=== PATIENT | female | born 1950 | race Caucasian/White ===

== ENCOUNTER 2019-12-10 14:47 | Outpatient (CLI) | payer MEDICARE, SELFPAY ==
--- NOTE | 2019-12-10 14:57 | MM_ITS ---
WS: [id number] BILATERAL DIGITAL SCREENING MAMMOGRAPHY WITH CAD CLINICAL INFORMATION: SCREEN HISTORY: Screening mammogram. No current complaints. COMPARISON: TECHNIQUE: Bilateral CC and MLO views. FINDINGS: The breasts are composed of heterogeneous fibroglandular density tissue, which can limit the detectio n of small underlying mass lesions. No suspicious mass, asymmetry, calcifications, or architectural d istortion. No evidence of malignancy. MM/[place] [id number] IMPRESSION: BI-RADS: 1-Negative FOLLOW UP: 1 Year Follow-up Recommend return to annual screening mammography.
== END 2019-12-10 14:48 | disposition home or self-care (01) ==
LOC: RADSHAW 14:55
PROVIDERS: PCP Family Medicine; Visit Provider Family Medicine
DX: Z12.31 Encounter for screening mammogram for malignant neoplasm of breast (principal)
CPT/HCPCS: 77067

== ENCOUNTER 2020-04-07 09:59 | Outpatient (CLI) | payer MEDICARE, SELFPAY ==
--- NOTE | 2020-04-07 10:09 | XR_ITS ---
WS: [id number] Cervical spine, 4 views, 04/07/2020 Clinical Data: NECK PAIN Comparison: None. Findings: No compression fractures are seen. There is disc space narrowing at C4-C5 and C5-C6. Minima l osteoarthritic change of the C5 vertebral body is noted. There is no prevertebral soft tissue swell ing. The odontoid is unremarkable. The soft tissues of the neck and the lung apices are normal. XR/XR cervical spine 3V* [id number] Impression: 1. Degenerative disc narrowing at C4-C5 and C5-C6. 2. Osteoarthritis of C5.
== END 2020-04-07 10:00 | disposition home or self-care (01) ==
PROVIDERS: PCP Family Medicine; Visit Provider Family Medicine
DX: M47.812 Spondylosis without myelopathy or radiculopathy, cervical region (principal)
CPT/HCPCS: 72040

== ENCOUNTER 2020-09-28 09:41 | Outpatient (CLI) | payer MEDICARE, SELFPAY ==
--- NOTE | 2020-09-28 09:48 | XR_ITS ---
WS: [id number] Chest 2 views, 09/28/2020 Clinical Data: COUGH Comparison: PA and lateral chest, 07/20/2012. Findings: No nodules, masses or effusions are seen. The heart is normal. The pulmonary vascularity is not increased. No pneumonia or pneumothorax is seen. There is minimal calcification in the aortic ar ch and mild tortuosity of the descending thoracic aorta. XR/XR chest 2V* [id number] Impression: Atherosclerosis.
== END 2020-09-28 09:42 | disposition home or self-care (01) ==
PROVIDERS: PCP Family Medicine; Visit Provider Family Medicine
DX: R05 Cough (principal); I70.90 Unspecified atherosclerosis
CPT/HCPCS: 71046

== ENCOUNTER 2021-08-29 10:42 | Outpatient (CLI) | payer MEDICARE, OTHER, SELFPAY ==
--- NOTE | 2021-08-29 10:55 | MM_ITS ---
WS: [id number] Bilateral screening 3D tomosynthesis digital mammogram, 08/29/2021 Clinical Data: SCREEN Comparison: 12/10/2019, 11/02/2018, 07/25/2016, 09/21/2005. Findings: The breast parenchymal pattern shows heterogeneous density. No spiculated masses or clustered calcif ications are seen. There are no secondary signs of carcinoma. MM/[place] [id number] Impression: 1. Negative bilateral mammogram unchanged. 2. Recommend annual screening mammograms. BIRADS: 1-Negative FOLLOW UP: 1 Year Follow-up The CAD credit checker was used.
== END 2021-08-29 10:43 | disposition home or self-care (01) ==
PROVIDERS: PCP Electrodiagnostic Medicine; Visit Provider Electrodiagnostic Medicine
DX: Z12.31 Encounter for screening mammogram for malignant neoplasm of breast (principal)
CPT/HCPCS: 77063; 77067

== ENCOUNTER → 2021-09-27 10:50 | Outpatient (BNVA) | payer MEDICARE, OTHER, SELFPAY | PROVIDERS: PCP Electrodiagnostic Medicine; Referring Provider Electrodiagnostic Medicine; Visit Provider Internal Medicine | DX: E03.8 Other specified hypothyroidism (principal); E06.3 Autoimmune thyroiditis; E04.1 Nontoxic single thyroid nodule; Z86.39 Personal history of other endocrine, nutritional and metabolic disease | CPT/HCPCS: 99204 ==

== ENCOUNTER 2021-10-03 10:23 | Outpatient (CLI) | payer MEDICARE, OTHER, SELFPAY ==
[2021-10-03 11:56] LABS: Free T4 Free Thyroxine 1.06 ng/dL (0.82-1.77)
[2021-10-03 11:57] LABS: Thyroid Stimulating Hormone 0.85 uIU/mL (0.27-4.20)
== END 2021-10-03 10:24 | disposition home or self-care (01) ==
LOC: LAB 10:29
PROVIDERS: PCP Electrodiagnostic Medicine; Visit Provider Internal Medicine
DX: E03.8 Other specified hypothyroidism (principal); E06.3 Autoimmune thyroiditis
CPT/HCPCS: 36415; 84439; 84443

== ENCOUNTER 2021-11-22 12:45 | Outpatient (CLI) | payer MEDICARE, OTHER, SELFPAY ==
[2021-11-22 13:56] LABS: Free T4 Free Thyroxine 1.05 ng/dL (0.82-1.77); Thyroid Stimulating Hormone 1.39 uIU/mL (0.27-4.20)
[2021-11-23 08:53] LABS: T3 Total 86 ng/dL (76-181)
[2021-11-28 17:23] LABS: TSH Receptor Binding Antibody 1.93 IU/L (< OR = 2.00)
== END 2021-11-22 12:46 | disposition home or self-care (01) ==
LOC: LAB 12:48
PROVIDERS: PCP Electrodiagnostic Medicine; Visit Provider Internal Medicine
DX: E03.8 Other specified hypothyroidism (principal); E04.1 Nontoxic single thyroid nodule; E06.3 Autoimmune thyroiditis; Z86.39 Personal history of other endocrine, nutritional and metabolic disease
CPT/HCPCS: 36415; 83516; 84439; 84443; 84480

== ENCOUNTER 2021-12-06 07:52 | Outpatient (CLI) | payer MEDICARE, OTHER, SELFPAY ==
--- NOTE | 2021-12-06 08:30 | US_ITS ---
WS: [id number] ULTRASOUND THYROID TECHNIQUE: Ultrasound of the thyroid. CLINICAL INFORMATION: nodules COMPARISON: 08/30/21 FINDINGS: Thyroid: Heterogeneous RIGHT thyroid lobe. More homogeneous LEFT thyroid lobe. This is unchanged in a ppearance compared to previous. Thyroid volume is within normal limits. Right thyroid lobe: 3.4 cm x 1.2 cm x 1.3 cm Heterogeneous RIGHT thyroid nodule in the mid thyroid is less well-defined today measuring 1.2 x 1.3 cm but appears unchanged compared to August 20, 2021. Heterogeneous RIGHT thyroid lobe is similar in ap pearance. Additional small hypoechoic nodule RIGHT thyroid measuring 0.5 x 0.4 x 0.4 cm Left thyroid lobe: 3.1 cm x 1.5 cm x 1.1 cm. Isthmus: 0.2 mm. Cervical lymphadenopathy: A few prominent but normal-appearing lymph nodes with preserved fatty hilum . US/US thyroid [id number] IMPRESSION: 1. Heterogeneous RIGHT mid thyroid nodule is less well-defined today but appea rs unchanged compared to August 20, 2021 measuring 1.2 x 1.3 CM. Recommend 12 mon th follow-up. Diffuse heterogeneity RIGHT thyroid lobe. 2. Additional smaller 0.5 and 0.4 x 0.4 cm hypoechoic cystic appearing nodule RIGHT thyroid. 3. No LEFT thyroid nodules.
== END 2021-12-06 07:53 | disposition home or self-care (01) ==
LOC: RAD 07:52
PROVIDERS: PCP Electrodiagnostic Medicine; Visit Provider Internal Medicine
DX: E03.8 Other specified hypothyroidism (principal); E04.1 Nontoxic single thyroid nodule; E06.3 Autoimmune thyroiditis; Z86.39 Personal history of other endocrine, nutritional and metabolic disease
CPT/HCPCS: 76536

== ENCOUNTER → 2021-12-13 10:28 | Outpatient (BNVA) | payer MEDICARE, OTHER, SELFPAY | PROVIDERS: PCP Electrodiagnostic Medicine; Visit Provider Internal Medicine | DX: E06.3 Autoimmune thyroiditis (principal); E04.1 Nontoxic single thyroid nodule; E03.8 Other specified hypothyroidism; Z86.39 Personal history of other endocrine, nutritional and metabolic disease | CPT/HCPCS: 99214 ==

== ENCOUNTER 2022-03-21 09:31 | Outpatient (CLI) | payer MEDICARE, OTHER, SELFPAY ==
--- NOTE | 2022-03-21 10:08 | CTR_ITS ---
PROCEDURE INFORMATION: Exam: CT Neck With Contrast Exam date and time: 03/21/2022 11:11 AM Age: 71 years old Clinical indication: Other: Chronic lymphadentis; Patient HX: HX of endometrial cancer TECHNIQUE: Imaging protocol: Computed tomography of the neck with contrast. Radiation optimization: All CT scans at this facility use at least one of these dose optimization techniques: automated exposure control; mA and/or kV adjustment per patient size (includes targeted exams where dose is matched to clinical indication); or iterative reconstruction. Contrast material: OMNI 350; Contrast volume: 95 ml; Contrast route: INTRAVENOUS (IV); COMPARISON: [place] thyroid [id number] 12/06/2021 8:16 AM RADIATION DOSE METRICS: Total DLP (mGy-cm): 313.45 FINDINGS: Dental: Examination is limited secondary to metallic artifact from dental fillings and/or dental hardware. Pharynx: Unremarkable. No significant tonsillar enlargement. Larynx: Unremarkable. Epiglottis is normal. Prevertebral and retropharyngeal spaces: Unremarkable. Salivary glands: Normal. Glands are normal in size. Thyroid: Normal. No enlarged or calcified nodules. Lymph nodes: Unremarkable. No lymphadenopathy. Trachea: Visualized trachea is unremarkable. Lungs: Unremarkable as visualized. Bones/joints: Unremarkable. No acute fracture. Soft tissues: Unremarkable. No significant soft tissue swelling. CT/CT neck w con* [id number] IMPRESSION: No acute findings.
[2022-03-21 11:19] LABS: Blood Urea Nitrogen 12 mg/dL (8-23)
[2022-03-21] MEDS: iohexol 350 mg/mL 500 mL Btl (per mL) IV (11:20)
== END 2022-03-21 09:32 | disposition home or self-care (01) ==
LOC: RAD 09:37
PROVIDERS: PCP Electrodiagnostic Medicine; Visit Provider Electrodiagnostic Medicine
DX: I88.1 Chronic lymphadenitis, except mesenteric (principal)
CPT/HCPCS: 70491; 82565; 84520; Q9967

== ENCOUNTER 2022-06-04 08:21 | Outpatient (CLI) | payer MEDICARE, OTHER, SELFPAY ==
[2022-06-04 09:42] LABS: Free T4 Free Thyroxine 0.96 ng/dL (0.82-1.77); Thyroid Stimulating Hormone 3.92 uIU/mL (0.27-4.20)
== END 2022-06-04 08:22 | disposition home or self-care (01) ==
PROVIDERS: PCP Electrodiagnostic Medicine; Visit Provider Internal Medicine
DX: E03.8 Other specified hypothyroidism (principal); E06.3 Autoimmune thyroiditis
CPT/HCPCS: 84439; 84443

== ENCOUNTER → 2022-06-10 10:25 | Outpatient (BNVA) | payer MEDICARE, OTHER, SELFPAY | PROVIDERS: PCP Electrodiagnostic Medicine; Visit Provider Internal Medicine | DX: E04.1 Nontoxic single thyroid nodule (principal); E06.3 Autoimmune thyroiditis; E03.8 Other specified hypothyroidism; Z86.39 Personal history of other endocrine, nutritional and metabolic disease; Z79.890 Hormone replacement therapy | CPT/HCPCS: 99214 ==

== ENCOUNTER 2022-08-21 12:34 | Outpatient (CLI) | payer MEDICARE, OTHER, SELFPAY ==
--- NOTE | 2022-08-21 12:41 | XR_ITS ---
WS: [email or web address] SCREENING DEXA SCAN [employer] CLINICAL INFORMATION: POSTMENOPAUSAL COMPARISON: None. FINDINGS: The L1-L4 bone mineral density measures 1.198 g/cm2. This corresponds to a T score score of 0.2 and Z score of 1.5. Left femoral neck bone mineral density measures 0.933 g/cm2. This corresponds to a T score of -0.6 an d Z score of 0.7. Right femoral neck bone mineral density measures 0.845 g/cm2. This corresponds to a T score -1.3of an d Z score of 0.0. Mean femoral neck bone mineral density measures 0.889 g/cm2. This corresponds to a T score of -0.9 an d Z score of 0.4. XR/XR DEXA axial skeleton* [id number] IMPRESSION: Normal bone mineralization lumbar spine. Osteopenia RIGHT femoral neck. Normal bone mineralization LEFT femoral neck. Patient's FRAX calculated 10 year probability for major osteoporotic fracture i s 11.0 % and osteoporotic hip fracture is 2.1%.
== END 2022-08-21 12:35 | disposition home or self-care (01) ==
PROVIDERS: PCP Electrodiagnostic Medicine; Visit Provider Physician Assistant
DX: Z13.820 Encounter for screening for osteoporosis (principal); Z78.0 Asymptomatic menopausal state
CPT/HCPCS: 77080

== ENCOUNTER 2022-12-11 10:47 | Outpatient (CLI) | payer MEDICARE, OTHER, SELFPAY ==
--- NOTE | 2022-12-11 11:15 | US_ITS ---
WS: [id number] THYROID ULTRASOUND HISTORY: thyroid nodule COMPARISON: 12/06/2021 Right lobe: 1.4 cm x 1.0 cm x 3.2 cm (w x ap x l). Volume: 2.3 cm3. Small caliber thyroid. The previously described ill-defined hypoechoic area in the central gland is u nchanged measuring 5 x 4 x 6 mm. This nodule is not very well-defined and not increasing in size. No additional nodules. No increased vascularity. Left lobe: 1.2 cm x 1.4 cm x 3.7 cm (w x ap x l). Volume: 3.3 cm3. Normal size and echotexture. No significant or dominant nodules are present. Isthmus: 0.2 cm. IMPRESSION: 1. TI-RADS 2, RIGHT thyroid nodule. No additional follow-up necessary. 2. Negative LEFT thyroid.
== END 2022-12-11 10:48 | disposition home or self-care (01) ==
PROVIDERS: PCP Electrodiagnostic Medicine; Visit Provider Internal Medicine
DX: E03.8 Other specified hypothyroidism (principal); E04.1 Nontoxic single thyroid nodule; E06.3 Autoimmune thyroiditis; Z86.39 Personal history of other endocrine, nutritional and metabolic disease
CPT/HCPCS: 76536; 99214

== ENCOUNTER 2023-01-01 10:42 | Outpatient (CLI) | payer MEDICARE, OTHER, SELFPAY ==
[2023-01-01 11:53] LABS: Free T4 Free Thyroxine 1.15 ng/dL (0.82-1.77); Thyroid Stimulating Hormone 2.18 uIU/mL (0.27-4.20)
[2023-01-02 21:29] LABS: T3 Total 85 ng/dL (76-181)
== END 2023-01-01 10:43 | disposition home or self-care (01) ==
LOC: LAB 10:45
PROVIDERS: PCP Electrodiagnostic Medicine; Visit Provider Internal Medicine
DX: E03.8 Other specified hypothyroidism (principal); E06.3 Autoimmune thyroiditis; Z86.39 Personal history of other endocrine, nutritional and metabolic disease
CPT/HCPCS: 36415; 84439; 84443; 84480

== ENCOUNTER → 2023-01-09 10:24 | Outpatient (BNVA) | payer MEDICARE, OTHER, SELFPAY | PROVIDERS: PCP Electrodiagnostic Medicine; Visit Provider Internal Medicine | DX: E03.8 Other specified hypothyroidism (principal); E06.3 Autoimmune thyroiditis; Z86.39 Personal history of other endocrine, nutritional and metabolic disease; E04.1 Nontoxic single thyroid nodule; I10 Essential (primary) hypertension; Z79.890 Hormone replacement therapy | CPT/HCPCS: 99214 ==

== ENCOUNTER 2023-02-18 07:44 | Outpatient (CLI) | payer MEDICARE, OTHER, SELFPAY ==
--- NOTE | 2023-02-18 07:55 | MR_ITS ---
WS: [id number] MRI RIGHT KNEE NONCONTRAST TECHNIQUE: Axial PD, coronal PD fat sat, coronal PD, sagittal PD, and sagittal PD fat-sat images obta ined. CLINICAL INFORMATION: DERANGEMENT OF LATERAL MENISCUS OF R KNEE COMPARISON: None. FINDINGS: Moderate tricompartmental arthritis. Distal quadriceps and patella tendons are intact. Hypertrophic p atella. ACL and PCL are intact. Tiny suprapatellar effusion. Moderate chondromalacia patella. Normal medial and lateral patellar retinaculum. Chronic thinning of the medial and lateral meniscus. No acut e appearing meniscal tears. Moderate chondromalacia medial and lateral joint compartments. Small amount of fluid and edema along the joint line. Medial and lateral collateral ligaments appear intact. Mild chronic peripheral extrus ion of the medial meniscus. Small lobulated popliteal cyst IMPRESSION: 1. Moderate tricompartmental arthritis. 2. ACL and PCL are intact. 3. Chronic thinning of the medial and lateral meniscus. No acute meniscal tears. Chronic peripheral extrusion of the medial meniscus. 4. Small suprapatellar effusion. 5. Moderate chondromalacia patella. No subchondral edema. 6. Small lobulated popliteal cyst. Outbridge grading: grade III: partial-thickness cartilage loss with focal ulceration
== END 2023-02-18 07:45 | disposition home or self-care (01) ==
PROVIDERS: PCP Electrodiagnostic Medicine; Visit Provider Electrodiagnostic Medicine
DX: M13.861 Other specified arthritis, right knee (principal); M71.21 Synovial cyst of popliteal space [Baker], right knee; M94.261 Chondromalacia, right knee; M25.461 Effusion, right knee
CPT/HCPCS: 73721

== ENCOUNTER 2023-07-14 14:31 | Outpatient (CLI) | payer MEDICARE, OTHER, SELFPAY ==
[2023-07-14 15:38] LABS: Free T4 Free Thyroxine 1.04 ng/dL (0.82-1.77); Thyroid Stimulating Hormone 2.34 uIU/mL (0.27-4.20)
== END 2023-07-14 14:32 | disposition home or self-care (01) ==
LOC: LAB 14:33
PROVIDERS: PCP Electrodiagnostic Medicine; Visit Provider Internal Medicine
DX: E03.8 Other specified hypothyroidism (principal); E06.3 Autoimmune thyroiditis
CPT/HCPCS: 36415; 84439; 84443

== ENCOUNTER 2023-10-02 10:45 | Outpatient (CLI) | payer MEDICARE, OTHER, SELFPAY ==
[2023-10-02 11:30] LABS: Free T4 Free Thyroxine 1.23 ng/dL (0.82-1.77); Thyroid Stimulating Hormone 2.63 uIU/mL (0.27-4.20)
== END 2023-10-02 10:46 | disposition home or self-care (01) ==
LOC: LAB 10:46
PROVIDERS: PCP Electrodiagnostic Medicine; Visit Provider Internal Medicine
DX: E03.8 Other specified hypothyroidism (principal); E06.3 Autoimmune thyroiditis
CPT/HCPCS: 36415; 84439; 84443

== ENCOUNTER → 2023-10-07 10:37 | Outpatient (BNVA) | payer MEDICARE, OTHER, SELFPAY | PROVIDERS: PCP Electrodiagnostic Medicine; Visit Provider Internal Medicine | DX: E03.8 Other specified hypothyroidism (principal); E06.3 Autoimmune thyroiditis; Z86.39 Personal history of other endocrine, nutritional and metabolic disease; E04.1 Nontoxic single thyroid nodule; Z79.890 Hormone replacement therapy | CPT/HCPCS: 99214 ==

== ENCOUNTER 2023-12-24 09:07 | Outpatient (CLI) | payer MEDICARE, OTHER, SELFPAY ==
--- NOTE | 2023-12-24 09:11 | MM_ITS ---
WS: [id number] BILATERAL SCREENING DIGITAL TOMOSYNTHESIS MAMMOGRAM WITH CAD HISTORY: SCREENING COMPARISON: 08/29/2021, 12/10/2019 Bilateral CC and MLO views with tomosynthesis and synthetic mammography submitted. Computer aided det ection analyzed. Breast composition: The breasts are heterogeneously dense, which may obscure small masses. No suspici ous masses, microcalcifications or architectural distortion. Stable asymmetries and a few scattered c alcifications. Similar to the prior study. MM/MM scr tomosynthesis [id number] IMPRESSION: BI-RADS: 2 - Benign FOLLOW UP: 1 Year Follow-up
== END 2023-12-24 09:08 | disposition home or self-care (01) ==
LOC: RAD 09:08
PROVIDERS: PCP Electrodiagnostic Medicine; Visit Provider Physician Assistant
DX: Z12.31 Encounter for screening mammogram for malignant neoplasm of breast (principal)
CPT/HCPCS: 77063; 77067

== ENCOUNTER 2024-10-20 16:16 | Outpatient (CLI) | payer MEDICARE, OTHER, SELFPAY ==
--- NOTE | 2024-10-20 16:30 | US_ITS ---
WS: [id number] THYROID ULTRASOUND REASON FOR EXAM: Thyroid nodule/nodules follow-up. TECHNIQUE: Grayscale and Doppler ultrasound examination of the thyroid gland. FINDINGS: LEFT: Left thyroid gland measures 3.2 cm x 1.1 cm x 1.4 cm. Left thyroid volume equals 2.4 ccm3. Mild heterogeneity of the echotexture of the right lobe of the thyroid. Solitary focal nodule in the medial left lobe of the thyroid measuring 4 x 3 x 5 mm. Sonolucent/hypoechoic with low-level echoes centrally. Through transmission with acoustic enhancement. This lesion was not demonstrated on the previous examination of 12/11/2022. RIGHT: Right thyroid gland measures 3.4 cm x 0.9 cm x 1.2 cm. Right thyroid volume equals 1.8 ccm3. Mild heterogeneity of the echotexture of the right lobe of the thyroid. No focal lesion identified. Focal abnormality seen on the previous examination of 12/11/2022 was not visualized. Thyroid isthmus: 0.3 mm. Mild heterogeneity of the echotexture of the isthmus. No focal lesion. US/US thyroid [id number] IMPRESSION: Mild heterogeneity of the echotexture of the thyroid gland. Small left thyroid nodule as described above. TR 3. Ultrasound follow-up.
== END 2024-10-20 16:17 | disposition home or self-care (01) ==
LOC: RAD 16:19
PROVIDERS: PCP Electrodiagnostic Medicine; Visit Provider Internal Medicine
DX: E04.1 Nontoxic single thyroid nodule (principal); Z86.39 Personal history of other endocrine, nutritional and metabolic disease; E03.8 Other specified hypothyroidism; E06.3 Autoimmune thyroiditis
CPT/HCPCS: 76536

== ENCOUNTER → 2024-10-26 11:32 | Outpatient (BNVA) | payer MEDICARE, OTHER, SELFPAY | PROVIDERS: PCP Electrodiagnostic Medicine; Visit Provider Internal Medicine | DX: E04.1 Nontoxic single thyroid nodule (principal); E06.3 Autoimmune thyroiditis; E03.8 Other specified hypothyroidism; Z86.39 Personal history of other endocrine, nutritional and metabolic disease | CPT/HCPCS: 99214 ==

== ENCOUNTER 2024-11-01 08:17 | Outpatient (CLI) | payer MEDICARE, OTHER, SELFPAY ==
[2024-11-01 09:06] LABS: Free T4 Free Thyroxine 1.16 ng/dL (0.82-1.77); Thyroid Stimulating Hormone 2.56 uIU/mL (0.27-4.20)
== END 2024-11-01 08:18 | disposition home or self-care (01) ==
PROVIDERS: PCP Electrodiagnostic Medicine; Visit Provider Internal Medicine
DX: E06.3 Autoimmune thyroiditis (principal); E03.8 Other specified hypothyroidism
CPT/HCPCS: 36415; 84439; 84443

== ENCOUNTER 2024-12-24 09:21 | Outpatient (CLI) | payer MEDICARE, OTHER, SELFPAY ==
--- NOTE | 2024-12-24 09:27 | MM_ITS ---
WS: [id number] BILATERAL SCREENING DIGITAL TOMOSYNTHESIS MAMMOGRAM WITH CAD HISTORY: SCREENING COMPARISON: 12/24/2023, 08/29/2021 Bilateral CC and MLO views with tomosynthesis and synthetic mammography submitted. Computer aided detection analyzed. Breast composition: The breasts are heterogeneously dense, which may obscure small masses. No suspicious masses, microcalcifications or architectural distortion. Benign scattered calcifications. MM/MM scr BI tomosynthesis [id number] IMPRESSION: BI-RADS: 2 - Benign FOLLOW UP: 1 Year Follow-up
== END 2024-12-24 09:22 | disposition home or self-care (01) ==
LOC: RAD 09:23
PROVIDERS: PCP Electrodiagnostic Medicine; Visit Provider Electrodiagnostic Medicine
DX: Z12.31 Encounter for screening mammogram for malignant neoplasm of breast (principal); R92.333 Mammographic heterogeneous density, bilateral breasts; R92.1 Mammographic calcification found on diagnostic imaging of breast
CPT/HCPCS: 77063; 77067